=== PATIENT | male | born 1965 | race Caucasian/White ===

== ENCOUNTER 2018-11-07 17:16 | Emergency (ER) | payer OTHER ==
[~2018-11-07] VITALS: Ht 167.6 cm; Wt 76.2 kg
== END 2018-11-07 21:33 | disposition home or self-care (01) ==
LOC: ER 17:16
DX: S11.82XA Laceration with foreign body of other specified part of neck, initial encounter (principal); W45.8XXA Other foreign body or object entering through skin, initial encounter; Y93.89 Activity, other specified; Y92.098 Other place in other non-institutional residence as the place of occurrence of the external cause; Y99.8 Other external cause status

== ENCOUNTER 2018-11-14 10:32 | Emergency (ER) | payer OTHER ==
[~2018-11-14] VITALS: Ht 167.6 cm; Wt 74.8 kg
== END 2018-11-14 12:12 | disposition home or self-care (01) ==
LOC: ER 10:32
DX: Z48.02 Encounter for removal of sutures (principal)